=== PATIENT | male | born 1990 ===

== ENCOUNTER 2021-10-27 19:36 | Emergency (ER) | payer MEDICAID ==
[2021-10-27] MEDS ORDERED: diphenhydrAMINE 50 MG/ML SDV IM ONE (20:50)
== END 2021-10-27 21:56 | disposition home or self-care (01) ==
LOC: DL.ED 19:36
DX: T78.40XA Allergy, unspecified, initial encounter (principal); E66.9 Obesity, unspecified; Z68.44 Body mass index [BMI] 60.0-69.9, adult
CPT/HCPCS: 96372; 99283; J1200